=== PATIENT | female | born 1950 | race Caucasian/White ===

== ENCOUNTER 2021-01-20 18:45 | Inpatient (IN) | payer MEDICARE, OTHER ==
[~2021-01-20] VITALS: Ht 170.2 cm; Wt 118.2 kg
[2021-01-20 20:49] VITALS: BP 134/70; PULSE 84; TEMP 97.9
[2021-01-20 21:10] LABS: PARTIAL THROMBOPLASTIN TIME 148.9 SECONDS (26.0-37.0)
--- NOTE | 2021-01-20 22:12 | NUR ---
PT REPORT PAIN IN CHEST AFTER EATING CRACKER AND MILK, ASKED FOR PAIN MED. NOTIFIED JAMES RODRÍGUEZ - ORDERS IN. OFFERED TYL AND NITRO PT STATES IT SETTLED DOWN ALOT AND DENY NEED FOR NITRO, TOOK TYL. NITRO AT BEDSIDE INCASE RETURNS. MONITORING.
[2021-01-20] MEDS ORDERED: LIPITOR 10MG10 MG PO (23:04)
[2021-01-20] MEDS ORDERED: GLUCOTROL10 MG PO (23:05)
[2021-01-20] MEDS ORDERED: GLUCOPHAGE1000 MG PO (23:05)
[2021-01-20] MEDS ORDERED: ACTOS 15MG TAB15 MG PO (23:06)
--- NOTE | 2021-01-20 23:22 | NUR ---
ALERT AND OX4. TRANS FROM [facility] ON STRETCHER. HEP GTT AT 14ML/HR. IV TO RT FA. DENIES SOA, CHEST PAIN OR DIZZY. MARCOS RAMIREZ CALLED FOR ADMIT. ORDERS PLACED. ASSESSMENT AND HX OBTAINED. MED REC COMPLETE. POC DISCUSSED. HEP XA CAME BACK HIGH. ON HOLD UNTIL 2314 HEPXA DRAW. CALL LIGHT WI REACH. NEEDS MET.
[2021-01-21] VITALS (16 sets, daily range): BP systolic 123–158; BP diastolic 47–96; PULSE 74–100; TEMP 97.7–98
--- NOTE | 2021-01-21 06:15 | NUR ---
RESTED THROUGH THE NIGHT WITHOUT INCIDENT. NEEDS MET.
--- NOTE | 2021-01-21 06:17 | NUR ---
HEP GTT GOING AT 11.5ML/HR. 0600AM HEPXA DRAWN PER LAB. AWAITING RESULTS TO FOLLOW PROTOCOL. PT IS NPO.
[2021-01-21 06:41] LABS: CALCIUM 8.8 mg/dL (8.4-10.2); CHOLESTEROL RISK RATIO 3.8; CREATININE, serum 0.93 mg/dL (0.57-1.11); POTASSIUM 4.2 mmol/L (3.5-4.5)
--- NOTE | 2021-01-21 09:28 | NUR ---
Shidt assessment. Pt in bed. VSS. Telemetry on.HR regular. Pt reports pain 2-3/10 in between shoulders. primary RN notified. Iv site to L hand patent w/ heparin gtt infusing per protocol.
[2021-01-21 09:48] LABS: HEMATOCRIT 39.4 % (37.0-47.0); HEMOGLOBIN 12.9 g/dl (12.5-16.0); MEAN CELL VOLUME 87 fl (80.0-100.0); MEAN CORPUSCULAR HEMOGLOBIN 29 pg (27.0-31.0); MEAN CORPUSCULAR HGB CONC 33 g/dl (33.0-37.0); MEAN PLATELET VOLUME 10.5 fl (7.4-10.4); PLATELET COUNT 223 K/mm3 (130-400); RED BLOOD COUNT 4.53 M/mm3 (4.10-5.30); REDCELL DISTRIBUTION WIDTH-CV 13.3 % (11.5-14.5)
--- NOTE | 2021-01-21 10:28 | NUR ---
SW met with the patient to discuss discharge plan. The patient lives in [place] with her , Colby (ph#[phone]). She reports independence with ADLs and has a rollator. She reports that she is her 's caregiver, but that he is safe at home and that their neighbors and son-in-law are looking out for him while she is here. The patient's PCP is Dr. Luis Eduardo Salas and she receives her medications from [facility]. The patient does not have a DPOA-HC, but she reports that her and her daughter are working on her advanced directives now. She states that her is of sound mind and that she has two children: Sulema ([place]) and Mai Caputo ([place]). The patient plans to return home with her upon discharge. No additional needs at this time. *Discharge plan: home with *
--- NOTE | 2021-01-21 13:44 | NUR ---
ASSESSED SITE, RIGHT FEMORAL NO HEMATOMA, ANGIOSEAL AND SAFEGAURD IN PLACE, 30CC AIR. FLAT TIME UNTIL 1530. RIGHT RADIAL BAND IN PLACE, 14 CC AIR DRESSING CLEAN, DRY AND INTACT, NO HEMATOMA, SITE IS SOFT.
--- NOTE | 2021-01-21 16:10 | NUR ---
NOTIFIED ABOUT HIGH HEP XA. DOCTOR AWARE DUE TO HEPARIN BOLUS DURING GRADUATE RECRUITER, HEPARIN D/C AFTER CATH AND BEFORE HEP XA DRAW. PT IS RECEIVING NO HEPARIN AT THIS TIME.
--- NOTE | 2021-01-21 16:12 | NUR ---
RADIAL COMPRESSION BAND DEFLATED 2 ML OF AIR, CURRENTLY AT 12, CLEAN DRY AND INTACT, NO HEMATOMA. PT SAT UP AFTER 2 HOURS OF FLAT TIME, KEEPING LEG STRAIGHT AND NO COMPLAINTS OF PAIN.
--- NOTE | 2021-01-21 16:51 | NUR ---
FEMORAL SITE CLEAN DRY AND INTACT, STILL AT 30 ML. RADIAL COMPRESSION BAND DECREASED BY 2 ML, CURRENTLY AT 10 ML OF AIR. CLEAN DRY INTACT WITH NO HEMATOMA. PT ASSISTED TO BEDSIDE COMMODE, SITES DRY AND INTACT. VITALS STABLE
--- NOTE | 2021-01-21 17:42 | NUR ---
PT RIGHT FEMORAL SITE CLEAN DRY AND INTACT WITH NO HEMATOMA, PT UP TO BEDSIDE COMMODE AGAIN, COMPLAINED OF SOME PAIN BUT STATES IS BETTER RESTING AGAIN. RIGHT RADIAL DECREASED BY 2 ML, DOWN TO 8 ML TOTAL. SITE IS CLEAN DRY AND INTACT, NO HEMATOMA SOFT TO TOUCH.
--- NOTE | 2021-01-21 18:16 | NUR ---
PT UNDERWENT HEART CATH TODAY, WAS NPO SINCE MIDNIGHT. PT RIGHT RADIAL WRIST WAS UNABLE TO BE USED FOR HEART CATH, USED RIGHT FEMORAL SITE. PT HAD BALLOON AND STENT PLACED. PT HAD PRESCRIBED 2 HOURS OF FLAT TIME, COMPLAINED OF BACK PAIN DURING. ONCE FLAT TIME WAS ELAPSED, REPOSITIONED PT AND PT STATED RELIEF OF BACK PRESSURE. PT HAD 2 LOOSE STOOLS AFTER EATING LUNCH. PT REPORTED SLIGHT PAIN IN SITE IN FEMORAL, PT STATED FELT BETTER SINCE RESTING. PT HAS BEEN PLEASANT ALL DAY. NO NEEDS AT THIS TIME. CALL LIGHT IN REACH, DENIES PAIN. 8 ML OF AIR LEFT IN RIGHT RADIAL COMPRESSION BAND, 30 ML OF AIR LEFT AT RIGHT FEMORAL SITE.
--- NOTE | 2021-01-21 18:25 | NUR ---
PT RADIAL SITE CLEAN DRY INTACT, TOOK 3 ML OFF. 5 ML LEFT IN BAND. NO HEMATOMA, SOFT TO TOUCH.
[2021-01-22 00:46] VITALS: BP 118/69; PULSE 73; TEMP 98.5
[2021-01-22 04:47] VITALS: BP 124/59; PULSE 75; TEMP 98
--- NOTE | 2021-01-22 05:45 | NUR ---
RESTED THOUGH THE NIGHT WITHOUT INCIDENT. RT RADIAL AND RT FEMORAL SITE C/D/I. NEEDS MET.
--- NOTE | 2021-01-22 07:11 | NUR ---
PT ASLEEP IN BED. CALL LIGHT IN PLACE, NO NEEDS AT THIS TIME
--- NOTE | 2021-01-22 07:43 | NUR ---
PT CONCERNED ABOUT FEMORAL SITE FOR ANY OOZING BECAUSE SHE WASN'T SURE HOW IT HELD UP DURING SLEEP. THIS RN CHECKED SITE AND FOUND SITE TO BE CLEAN, DRY AND INTACT.
[2021-01-22 08:07] VITALS: BP 106/76; PULSE 77; TEMP 97.8
--- NOTE | 2021-01-22 11:22 | NUR ---
PT SITTING UPRIGHT IN BED, NO COMPLAINTS AND DENIES PAIN, SOB OR CHEST PAIN. PT CALL LIGHT IN REACH, NO NEEDS AT THIS TIME. TOLD PT THIS RN WOULD PUT IN DIETARY CONSULT TO REVIEW AHA DIET AND MAKING APPROPRIATE CHOICES PER PT REQUEST. PT SAID SHE WAS HAPPY ABOUT THIS AND TO HELP MAKE BETTER CHOICES FOR HER AND .
[2021-01-22 11:39] VITALS: BP 114/78; PULSE 116; TEMP 97.7
--- NOTE | 2021-01-22 13:15 | NUR ---
First visit from the environment friendly landscape designer. No needs right now.
[2021-01-22] MEDS ORDERED: TOPROL XL 25MG25 MG PO (15:57)
[2021-01-22] MEDS ORDERED: LIPITOR 80MG80 MG PO (15:57)
[2021-01-22] MEDS ORDERED: PRINIVIL10 MG PO (15:57)
[2021-01-22] MEDS ORDERED: PLAVIX 75MG TAB75 MG PO (15:57)
[2021-01-22] MEDS ORDERED: TRADJENTA5 MG PO (15:59)
[2021-01-22 16:02] VITALS: BP 122/71; PULSE 78; TEMP 98.1
[2021-01-22 16:38] LABS: CALCIUM 9.3 mg/dL (8.4-10.2); CREATININE, serum 1.02 mg/dL (0.57-1.11); POTASSIUM 4.2 mmol/L (3.5-4.5)
--- NOTE | 2021-01-22 18:25 | NUR ---
PT DISCHARGE INSTRUCTIONS GIVEN. PT CALLED PHARMACY TO ENSURE SON IN LAW CAN GRAPHITE DISK ASSEMBLER, SHE WAS MADE AWARE OF THE COPAY OF [place], PT STATED THAT SHE IS UNABLE TO AFFORD THAT COPAY AT THIS PHARMACY AT THE TIME. THIS RN CALLED DR. AUGUSTIN TO ADVISE, WENT TO [employer] AND LEFT MESSAGE. PT STATED SHE WILL NOT GRAPHITE DISK ASSEMBLER THAT ORDER UNTIL CLARIFICATION OR POSSIBLE SUBSITUTION.
[2021-01-23] MEDS ORDERED: FREESTYLE PREC1 EAC5 MC (14:47)
[2021-01-23] MEDS ORDERED: NOVOLOG 100U100 U/M1 SQ ×2 (14:47→15:35)
[2021-01-23] MEDS ORDERED: INSULIN PEN NE1 EAC1 MC (14:47)
[2021-01-23] MEDS ORDERED: LANCETS MC (14:47)
[2021-01-23] MEDS ORDERED: BD ALCOHOL1 SWA TP (14:47)
== END 2021-01-22 19:00 | disposition home or self-care (01) | DRG 247 ==
LOC: MEDICAL 18:45
PROVIDERS: Internal Medicine Cardiovascular Disease; Physician Assistant; Student in an Organized Health Care Education/Training Program; ADMIT Family Medicine
PROC: 027034Z Dilation of Coronary Artery, One Artery with Drug-eluting Intraluminal Device, Percutaneous Approach (ICD-10-PCS; principal; 2021-01-21)
PROC: 4A023N7 Measurement of Cardiac Sampling and Pressure, Left Heart, Percutaneous Approach (ICD-10-PCS; 2021-01-21)
PROC: B2111ZZ Fluoroscopy of Multiple Coronary Arteries using Low Osmolar Contrast (ICD-10-PCS; 2021-01-21)
DX: I21.4 Non-ST elevation (NSTEMI) myocardial infarction (principal); E87.2 Acidosis; Z68.41 Body mass index [BMI] 40.0-44.9, adult; I10 Essential (primary) hypertension; E78.5 Hyperlipidemia, unspecified; E11.9 Type 2 diabetes mellitus without complications; K21.9 Gastro-esophageal reflux disease without esophagitis; M16.0 Bilateral primary osteoarthritis of hip; E66.9 Obesity, unspecified; I25.10 Atherosclerotic heart disease of native coronary artery without angina pectoris; Z79.84 Long term (current) use of oral hypoglycemic drugs; Z87.891 Personal history of nicotine dependence; Z85.43 Personal history of malignant neoplasm of ovary; Z85.42 Personal history of malignant neoplasm of other parts of uterus
CPT/HCPCS: 99232-AI; 99239; C1725; C1760; C1769; C1874; C1887; C1894; C9600; G0378; J1644; J1815; J2250; J3010